=== PATIENT | female | born 1955 | race Caucasian/White ===

== ENCOUNTER 2024-06-07 12:56 | Outpatient (OUT) | payer MEDICARE, SELFPAY ==
--- NOTE | 2024-06-01 14:09 | VEINCLINIC_ITS ---
Vital Signs 06/07/24 13:12 Height 5 ft 3 in Weight 52.617 kg BMI 20.5 BP 112/62 BP Location Left Brachial BP Position Sitting BP Cuff Size Adult BP Source Manual Cuff Respiration 16 Pulse 63 Pulse Source Monitor Pulse Oximetry (%) 99 Oxygen Delivery Method Room Air Varicose Veins Patient is a 68 year old female in this day with c/o bilateral leg pain/achiness. Patient noted the pain within the last 3-4 months. The pain is rated at a 4 on a scale of 1-10. 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 Patient has not worn bilateral leg knee high compression stockings, yet is willing to purchase them this day and wear them accordingly. Patient has not had vein carolyn luation nor treatment in the past. Patient does have family history of varicose vein disease. No history of trauma nor blood clots. Calvin Wong MD personally performed the services described in this documentation, as scribed by Edward Whitt RN in my presence and it is both accurate and complete. Edward Wong RN, am scribing for, and in the presence of, Dr. Calvin Multani and in the presence of the patient.. . thigh: bilateral (symptoms left > right leg), knee: bilateral, calf: bilateral, ankle: bilateral and armstrong: bilateral aching, burning, intermittent and tender 4 3 months Worsened in recent months: Yes standing and sitting elevating extremities and exercise Reports heaviness, restless legs and limb pain History of lower extremity trauma: No Superficial thrombophlebitis: No Family history of varicose veins: yes Has patient had previous lower extremity venous surgery: No Patient has previously received the following treatment(s) for lower extremity varicose veins: Reports none Does patient have a history of : no Does patient intend to have future pregnancies: no Has patient had lower extremity venous scan with relux testing: No Support hose used: No Problems walking or doing physical activity: Yes How does it affect you: decreased activity secondary to pain Do you walk much: Yes Do you stand much: Yes Review of Systems ROS Narrative Calvin Wong MD personally performed the services described in this documentation, as scribed by Edward Whitt RN in my presence and it is both accurate and complete. Edward Wong RN, am scribing for, and in the presence of, Dr. Calvin Multani and in the presence of the patient. Status of ROS 10 or more systems reviewed and unremark able except as noted in history and below Neurological Reports: weakness in extremities [facility] Medical History (Updated 06/07/24 @ 13:24 by Edward Whitt) Depression ?F32.A - Depression, unspecified (ICD-10) Varicose veins of bilateral lower extremities with pain ?I83.813 - Varicose veins of bilateral lower extremities with pain (ICD-10) Surgical History (Updated 06/07/24 @ 13:24 by Edward Whitt) History of tonsillectomy and adenoidectomy ?Z90.89 - Acquired absence of other organs (ICD-10) Family History (Updated 06/07/24 @ 13:26 by Edward Whitt) Father Family history of cancer Mother Family history of cancer Other Family history of diabetes mellitus Family history of myocardial infarction Varicose veins of bilateral lower extremities with pain Social History (Updated 06/07/24 @ 13:26 by Edward Whitt) Within the past year, how often did you have a drink containing alcohol: 2-4 times a month Smoking status: Never smoker Non-prescribed substance use: denies use Meds Home Medications and Allergies Home Medications ?Medication ?Instructions ?Recorded ?Confirmed ?Type escitalopram oxalate 10 mg tablet 10 mg PO DAILY 06/07/24 06/07/24 History (Lexapro) multivitamin (Daily Multi-Vitamin 1 tab PO DAILY 06/07/24 06/07/24 History tablet) Allergies Allergy/AdvReac Type Severity Reaction Status Date / Time No Known Drug Allergies Allergy Verified 06/07/24 13:24 Exam Narrative Exam Narrative: Calvin Wong MD personally performed the services described in this documentation, as scribed by Edward Whitt RN in my presence and it is both accurate and complete. IEdward RN, am scribing for, and in the presence of, Dr. Calvin Multani and in the presence of the patient. Constitutional Documenting provider has reviewed patient's vital signs: yes Common normals: oriented x3 Cardio Peripheral pulses: posterior tibial pulses present and dorsalis pedis pulses present Extremity Common normals: normal capillary refill Right lower extremity: lower leg Right lower leg: inspection and palpation Left lower extremity: lower leg Left lower leg: inspection and palpation Neuro Common normals: oriented x3 Results Additional Findings Additional findings: Bilateral leg reflux u/s reveals no varicose vein disease noted. Calvin Wong MD personally performed the services described in this documentation, as scribed by Edward Whitt RN in my presence and it is both accurate and complete. IEdward RN, am scribing for, and in the presence of, Dr. Calvin Multani and in the presence of the patient. Assessment and Plan Assessment and Plan (1) Varicose veins of bilateral lower extremities with pain: Plan Patient to initiate bilateral leg knee high compression stockings. Patient to continue exercise, rest, and elevation bilateral legs. No f/u necessary. Calvin Wong MD personally performed the services described in this documentation, as scribed by Edward Whitt RN in my presence and it is both accurate and complete. Edward Wong RN, am scribing for, and in the presence of, Dr. Calvin Multani and in the presence of the patient.
--- NOTE | 2024-06-07 13:02 | VEIN_ITS ---
Patient Name: CAL FORRESTER MR#: [id number] : 1955 Exam Date: 06/07/2024 Ordering Doctor: DR JAVID DICKENS M.D. RADIOLOGY REPORT PROCEDURE: [facility] - OFFICE VISIT INITIAL COMPARISON: None. PROGRESS NOTES: [age] year old female who presents with a 3-4 month history of bilateral leg pain, achiness. The patient's leg symptoms are symmetric bilaterally. There has been a progression of symptoms over time. This increases with prolonged leg dependency. The patient describes an improvement with rest and elevation. The patient denies any signs and symptoms to suggest arterial ischemia. The patient describes a family history of cancer, diabetes, myocardial infarction, and varicose veins. The patient has drinking and smoking history of : Occasional alcohol consumption; no tobacco use. Patient has a past medical history significant for varicose veins. The patient denies a history of deep venous thrombus or pulmonary embolus. See separate history and physical for medication list. No prior treatment for varicose or spider veins. No current use of compression stockings. After review of nurse notes, history and physical exam I discussed at length the pathophysiology of venous hypertension and possible treatments, therapies and strategies available. We discussed at length the importance of elevating the lower extremities above the level of the heart, increased physical activity and compression stocking use. Ultrasound venous reflux study performed today was discussed at length with the patient. The report demonstrates no abnormally dilated superficial veins or significant venous reflux within the right or left leg. PHYSICAL EXAM: The right leg demonstrates no significant varicosities, a few scattered spider veins, no ulceration, minimal edema, no skin discoloration. The left leg demonstrates no varicosities, a few scattered spider veins, no ulceration, minimal edema, no skin discoloration. Both thighs, legs and feet were symmetrically warm to the touch. Good posterior tibial and dorsalis pedis pulses were present bilaterally. VEIN/[facility] IMPRESSION: 1. No significant venous insufficiency 2. No significant lower extremity varicose veins 3. Mild lower extremity subcutaneous edema 4. No flow significant arterial disease 5. CEAP: C1, EC, , PN PLAN: 1. Begin use of compression stockings 2. Elevated legs and increased physical activity symptomatic relief 3. Follow-up in future as needed. Nurse notes, history and physical were reviewed and confirmed, see attached forms. The nurse was present throughout the physical exam and consultation Dictated by: Calvin Multani M.D. on 06/07/2024 at 15:39 Approved by: Calvin Multani M.D. on 06/07/2024 at 15:44
--- NOTE | 2024-06-07 13:02 | VEIN_ITS ---
Patient Name: CAL FORRESTER MR#: [id number] : 1955 Exam Date: 06/07/2024 Ordering Doctor: DR JAVID DICKENS M.D. RADIOLOGY REPORT PROCEDURE: VC EXT VENOUS REFLUX NAN LMTD COMPARISON: None. INDICATIONS: I83.813 Bilateral painful varicose veins TECHNIQUE: Duplex imaging of the lower extremity to assess the deep and superficial venous system for the presence of deep or superficial venous incompetence and to document the location and severity of disease. The study includes evaluation of the great saphenous vein (GSV), anterior accessory saphenous vein (AASV) and small saphenous vein (SSV). Patient scanned in reverse Trendelenburg and standing. FINDINGS: RIGHT LOWER EXTREMITY: Saphenofemoral Junction Reflux: YesNo 3.9mm sec GSV: Diam (mm) Reflux/ Time (sec) Proximal Thigh 3.6 No Mid Thigh 2.6 No Distal Thigh 2.2 Yes 1.6 Prox Calf 2.5 No Mid Calf 2.1 Yes 0.7 Saphenopopliteal Junction Reflux: 0.6mm No SSV: Proximal Calf 1.3 No Mid Calf 1.2 No AASV: Not present Proximal Thigh Mid Thigh Distal Thigh Thrombi: No acute or chronic thrombus visualized Compressibility: Normal Flow: Normal Preforator: Dist/med calf 1.2mm with 0s reflux. Tech Note: No incompetent veins visualized. Patent varicose vein mid/med thigh 1.3mm with 0s reflux. 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 Tech Note: No incompetent veins visualized. Patent varicose vein mid/med thigh 1.8mm with 1.1s reflux. CONCLUSION: 1. No abnormally dilated superficial veins or significant reflux in need of treatment at this time. Dictated by: Calvin Multani M.D. on 06/07/2024 at 15:38 Approved by: Calvin Multani M.D. on 06/07/2024 at 15:39
[2024-06-07 13:12] VITALS: BP 112/62; PULSE 63; O2SAT 99; BMI 20.5
--- NOTE | 2024-06-07 14:35 | P.DS_ITS ---
Discharge Plan Discharge Disposition: Home, Self-Care Plan of Treatment: Patient to initiate knee high compression stockings. Patient to continue exercise, rest, and elevation bilateral legs/feet. No f/u necessary. Print Language: [place]ian Discharge Date/Time: 06/07/24 15:40
== END 2024-06-07 15:40 | disposition home or self-care (01) ==
LOC: VC 12:56
PROVIDERS: PCP Radiology Diagnostic Radiology; Visit Provider Radiology Diagnostic Radiology
DX: I83.813 Varicose veins of bilateral lower extremities with pain (principal)
CPT/HCPCS: 93970; G0463